=== PATIENT | male | born 1950 | race African-American/Black ===

== ENCOUNTER → 2017-03-23 | Outpatient (CLI) | payer MEDICARE ==
[~2017-03-23] MED LIST: ACET500T68 PO; AMOX500T10 PO; ASC500 PO; ASPI81TA94 PO; ATOR20TA65 PO; CEPH250C37 PO; DONE10TA38 PO; DONE5TAB74 PO; FAM20 PO; FAMO20TA28 PO; GLUC100026 PO; HYDR-385 PO; HYDR-420 PO; IBU600 PO; IBUP800T37 PO; INDO25 PO; LEV500 PO; LEVO-85 PO; LOR10/325 PO; LOR5/325 PO; MEMA10TA3 PO; MULT-865 PO; MULT1CAP41 PO; OMEG-11 PO; PAN40 PO; PHENA200 PO; PIRO-1 PO; PREVPACPT PO; PROSTATE MED; RANI150C17 PO; SAW1CAPS3 PO; SAW450CA3 PO; VALS1TAB64 PO; VALS1TAB67 PO; [UNRECOGNIZED DRUG - CODE] PO
[2017-03-23 09:56] LABS: PLATELET COUNT, AUTOMATED 209 K/uL (150-450)
[2017-03-23 11:06] LABS: LDL CHOLESTEROL 60 mg/dl
--- NOTE | 2017-03-23 13:40 | RADIOLOGY IMAGING REPORT ---
FACILITY: [facility] - [place] PATIENT NAME: Julio C Chanel : 1950 MR: [id number] V: [id number] EXAM DATE: ORDERING PHYSICIAN: LUCI ELENA TECHNOLOGIST: Location: [facility] [place] Patient: Julio C Chanel : 1950 Visit/Account:[id number] Date of Sevice: 03/23/2017 CAROTID HISTORY: history of stroke COMPARISON: None. FINDINGS: Grayscale, duplex and color Doppler interrogation of the extracranial carotid and vertebral arteries was performed bilateral. On the right, peak systolic velocities within the common and internal carotid arteries are 101 and 64 cm/sec respectively. No significant plaque identified. Antegrade flow within the common, internal and external carotid arteries as well as vertebral artery. ICA/CCA ratio 0.7. On the left, peak systolic velocities within the common and internal carotid arteries are 120 and 68 cm/sec respectively. No significant plaque identified. Antegrade flow within the common, internal a nd external carotid arteries as well as vertebral artery. ICA/CCA ratio 0.7. IMPRESSION: No hemodynamically significant lesions identified Velocity criteria are extrapolated from diameter data as defined by the Society of Radiologists in Ul trasound Consensus Conference Radiology 2003; 229;340-346 Report Dictated By: Beverley Hernandez MD at 03/23/2017 1:34 PM Report E-Signed By: Beverley Hernandez MD at 03/23/2017 1:36 PM WSN:[email or web address]
--- NOTE | 2017-03-23 22:34 | RADIOLOGY IMAGING REPORT ---
FACILITY: [facility] PATIENT NAME: JIM MACARIO : [id number] MR: [id number] V: [id number] EXAM DATE: ORDERING PHYSICIAN: LUCI ELENA TECHNOLOGIST: Ramila Westbrook EXAMINATION:TWO-DIMENSIONAL ECHOCARDIOGRAPH REASON:HISTORY OF CVA. 2D Measurements (normal values in centimeters) LV endLV endRV endVent.LV PostAorticLeftPercent DiastolicSystolicDiastolicSeptumWallRootAtriumShortening (3.5-5.7)(0.9-2.6)(0.6-1.1)(0.6-1.1)(2.0-3.7)(1.9-4.0)(25-35%) [id number]% STROKE VOLUME: 29 mL ESTIMATED EJECTION FRACTION:58% PARASTERNAL LONG AXIS: Overall left ventricular systolic function does appear to be normal with occasional premature ventricular contraction is noted. No wall motion abnormalities are noted. The right ventricle is mildly enlarged. The other chamber sizes appear to be normal. No wall motion abnormalities are noted in this view. PARASTERNAL SHORT AXIS: Overall left ventricular function again appears to be normal. No specific wall motion abnormalities were noted. Aortic valve was trileaflet in configuration and appears to open normally. Color examination of the valve revealed only a trace of aortic insufficiency present. There is a trace of pulmonic insufficiency noted as well. APICAL FOUR AND TWO CHAMBER: Normal left ventricular systolic function. Aortic valve area and mitral valve area both measure within normal range at 2.6 and 3.4 cm2 respectively. The left atrial volume is within normal ranges at 18 mL/m2. Right atrial volume is severely increased at 41 mL/m2. Tricuspid regurgitation V-max is measured at 2.4 m/sec. Trace of tricuspid insufficiency is noted. Trace of aortic insufficiency is also noted. No thrombi are noted in any of the chambers. Left atrial appendage is not seen. SUBCOSTAL VIEW: No pericardial effusion was noted. Agitated saline bubble contrast study revealed just a trace of bubbles noted in the left side of the heart. Difficult to tell where they came from as there was only a trace. No significant atrial septal or ventricular septal defects was noted to account for these bubbles but Doppler examination of the mitral valve in diastole does reveal the A wave greater than the E wave. Aortic insufficiency pressure halftime is measured at 355 msec. OVERALL IMPRESSION: 1. Normal left ventricular ejection fraction of 58% with a grade 1/4 decrease in diastolic function. 2. Mild right ventricular enlargement and severe right atrial enlargement. Left sided heart chambers are normal in size. 3. A trileaflet aortic valve with no aortic stenosis and a mild amount of aortic insufficiency is noted. 4. A trace of pulmonic insufficiency is noted. 5. Trace of tricuspid insufficiency is noted with estimated right ventricular systolic pressure within normal range at 31 mmHg. 6. The agitated saline bubble contrast study does show a trace of bubbles in the left chambers. This is suggestive of either a small ventricular or atrioseptal defect. We were unable to actually point where the agitated saline was coming through the right side to the left side, but this is a very small trace amount, not suggestive of any significant septal defect. 7. No thrombi were noted in any of the chambers but the left atrial appendage was not seen. Dictated by: Patrick Zapien M.D. on 03/23/2017 at 14:46 Transcribed by: GUILLERMO on 03/23/2017 at 15:00 Approved by: Patrick Zapien M.D. on 03/23/2017 at 22:33 [facility]
== END ==
LOC: US 00:45
PROVIDERS: ATTEND Emergency Medicine
DX: I51.7 Cardiomegaly (principal); I35.1 Nonrheumatic aortic (valve) insufficiency; I37.1 Nonrheumatic pulmonary valve insufficiency; I07.1 Rheumatic tricuspid insufficiency
CPT/HCPCS: 36415; 82040; 82247; 82310; 82374; 82435; 82465; 82565; 82607; 82947; 83718; 84075; 84132; 84155; 84295; 84443; 84450; 84460; 84478; 84520; 85025; 93306; 93880

== ENCOUNTER → 2017-03-24 | Outpatient (CLI) | payer MEDICARE ==
--- NOTE | 2017-03-27 06:50 | RT HOLTER TEST ---
FACILITY: [facility] PATIENT NAME: JIM MACARIO : [id number] MR: [id number] V: [id number] EXAM DATE: ORDERING PHYSICIAN: LUCI ELENA TECHNOLOGIST: jed Hook-up date: 2017-03-24 13:14:00 Duration: 47:59:00 Test Indications: HX OF STROKE Medications: SEE DIARY 806423 QRS complexes 2926 Ventricular ectopics which represent 2 % of total QRS comp. 12 Supraventricular ectopics which represent <1 % of total QRS comp. * Paced QRS complexes which represent % of total QRS comp. VENTRICULAR ECTOPY 2926 Isolated 0 Bigeminal Cycles 0 Couplets 0 Runs 0 Beats in Runs * Beats LONGEST at * BPM at :: -- * Beats FASTEST at * BPM at :: -- SUPRAVENTRICULAR ECTOPY 6 Isolated 0 Couplets 1 Runs 6 Beats in Runs 6 Beats LONGEST at 120 BPM at 01:20:53 2017-03-25 6 Beats FASTEST at 120 BPM at 01:20:53 2017-03-25 HEART RATES 54 MIN at 05:43:43 2017-03-25 91 AVG 136 MAX at 09:59:25 2017-03-25 LONGEST RR 1.424 secs at 02:47:13 2017-03-25 S-T LEVELS Channel 1 -12.800 mm MIN at 13:14:00 2017-03-24 -12.800 mm MAX at 13:14:00 2017-03-24 Channel 2 -12.800 mm MIN at 13:14:00 2017-03-2412.800 mm MAX at 13:14:00 2017-03-24 Channel 3 -12.800 mm MIN at 13:14:00 2017-03-2412.800 mm MAX at 13:14:00 2017-03-24 Minimum heart rate is sinus bradycardia at 54 beats per minute (BPM). Maximum heart rate is sinus tac hycardia at 136 BPM. Average heart rate was 91 BPM. There were 2926 PVCs with no couplets or runs. There was one run of SVT, 6 beats only. No other arrhythmias were noted. There were no diary entries. Confirmed by ALIRIO STOKES ([id number]) on 03/27/2017 6:49:30 AM Referred By: Overread By: ALIRIO STOKES
== END ==
LOC: RESP 12:48
PROVIDERS: ATTEND Emergency Medicine
DX: Z86.73 Personal history of transient ischemic attack (TIA), and cerebral infarction without residual deficits (principal)
CPT/HCPCS: 93225

== ENCOUNTER → 2017-10-27 | Outpatient (CLI) | payer MEDICARE ==
[~2017-10-27] MED LIST changes: +AMOX-362 PO; +ATOR40TA69 PO; +LOSA100T67 PO; +ROSU20TA23 PO; +VALS1TAB72 PO
== END ==
LOC: LAB 09:10
DX: R97.20 Elevated prostate specific antigen [PSA] (principal)
CPT/HCPCS: 36415; 84153

== ENCOUNTER → 2017-10-27 | Outpatient (CLI) | payer MEDICARE ==
[2017-10-27 10:08] LABS: LDL CHOLESTEROL 45 mg/dl
== END ==
LOC: LAB 09:05
PROVIDERS: ATTEND Emergency Medicine
DX: R35.0 Frequency of micturition (principal); I10 Essential (primary) hypertension
CPT/HCPCS: 81001; 82310; 82374; 82435; 82465; 82565; 82947; 83718; 84132; 84295; 84478; 84520

== ENCOUNTER → 2017-11-02 | Outpatient (CLI) | payer MEDICARE ==
--- NOTE | 2017-11-02 13:49 | RADIOLOGY IMAGING REPORT ---
FACILITY: [facility] - [place] PATIENT NAME: Julio C Chanel : 1950 MR: [id number] V: [id number] EXAM DATE: ORDERING PHYSICIAN: KUN DELAROSA TECHNOLOGIST: [facility] Patient: Julio C Chanel : 1950 Visit/Account:[id number] Date of Sevice: 11/02/2017 EXAMINATION: Ultrasound bladder HISTORY: Incomplete bladder emptying, worsening. COMPARISON: CT abdomen and pelvis from 01/30/2013. FINDINGS: The bladder is distended with mild trabeculation of the bladder wall. No focal abnormalit y. Prevoid volume is 205 mL, and post void volume is 49 mL. Normal bilateral ureteral jets are visu alized. The prostate is enlarged and heterogeneous, indenting the bladder base with a few coarse central calc ifications. The prostate measures 5.7 x 4.3 x 5.5 cm, for estimated volume of 70 mL. The prostate i s mildly hypervascular. IMPRESSION: 1. Trabeculation of the urinary bladder wall is suggestive of chronic bladder outlet obstruction, wi th a post void residual of 49 mL. 2. Enlarged, heterogeneous and mildly hypervascular prostate. This could be acute prostatitis super imposed on benign prostatic hypertrophy. Report Dictated By: Sophia Rosales MD at 11/02/2017 1:40 PM Report E-Signed By: Sophia Rosales MD at 11/02/2017 1:45 PM WSN:[email or web address]
== END ==
LOC: US 01:18
DX: N40.1 Benign prostatic hyperplasia with lower urinary tract symptoms (principal); R33.8 Other retention of urine; R39.89 Other symptoms and signs involving the genitourinary system

== ENCOUNTER → 2017-11-07 | Outpatient (CLI) | payer MEDICARE | LOC: LAB 09:38 | DX: N30.01 Acute cystitis with hematuria (principal) | CPT/HCPCS: 81001; 87088 ==